=== PATIENT | female | born 1965 | race Two or more races ===

== ENCOUNTER 2016-12-14 08:48 | Day surgery (SDC) | payer OTHER ==
[2016-12-14] VITALS (9 sets, daily range): BP systolic 98–107; BP diastolic 59–85
[~2016-12-14] VITALS: Ht 160 cm; Wt 58.5 kg
[~2016-12-14 08:48] MED LIST: LR 1000ml 1,000 ML IVLG SCH
[2016-12-14] MEDS ORDERED: KLONOPIN1 MG ORAL (09:12)
[2016-12-14] MEDS ORDERED: CYMBALTA60 MG ORAL (09:12)
[2016-12-14] MEDS ORDERED: Propofol 200mg/20ml IV ONE (10:00)
[2016-12-14] MEDS ORDERED: Lidocaine 1% MPF 10mg/ml 5ml ONE (10:00)
[2016-12-14] MEDS ORDERED: LR 1000ml ONE (10:00)
--- NOTE | 2016-12-14 10:09 | Short Stay Surgery H&P ---
History of Present Illness History of Present Illness Chief Complaint History of iron deficiency anemia R/O GI bleeding. HPI Apple Lovett is a 51 year old female who was admitted on for Iron deficiency to R/O GI bleeding site. Patient History Allergies: Coded Allergies: No Known Allergies (Unverified , 12/13/16) PAST MEDICAL HISTORY: Past Surgeries: Social History: Medication History Scheduled Clonazepam* (Klonopin*), 1 MG ORAL HS, (Reported) Duloxetine Hcl* (Cymbalta*), 60 MG ORAL DAILY, (Reported) Review of Systems Cardiovascular: Reports: no symptoms Respiratory: Reports: no symptoms Skeletal: Reports: no symptoms Gastrointestinal: Reports: no symptoms Genitourinary: Reports: no symptoms Neurologic: Reports: no symptoms Hematologic: Reports: anemia Physical Exam Vital Signs Last Vital Signs Date Time Temp Pulse Resp B/P (MAP) Pulse Ox O2 Delivery O2 Flow Rate FiO2 12/14/16 09:17 97.7 90 20 107/85 100 Room Air Labs Laboratory Tests Test 12/14/16 09:55 Human Chorionic Gonadotropin, Qual Pending Skin: normal HENT: normal Heart: normal Lungs: normal Abdomen: normal Extremities: normal Genitourinary: normal Plan Plan of Care Upper and lower GI endoscopies. Preop Interventions none. Summary of Findings See the reports. Final Diagnosis: Attestation Are the patient's medical conditions optimized for surgery? Attestation Response: yes ASHIA MCCOY Dec 14, 2016 10:09
--- NOTE | 2016-12-14 10:10 | Pre-Procedure Note/Attestation ---
Pre-Procedure Note/Attestation Complete Prior to Procedure Planned Procedure: left Procedure Narrative: The endoscopic examination of the upper and lower GI tract Indications for Procedure Pre-Operative Diagnosis: R/O Peptic ulcer/colitis/ AVM/ hemangioma/colitis etc. Attestation I attest that I discussed the nature of the procedure; its benefits; risks and complications; and alternatives (and the risks and benefits of such alternatives ), prior to the procedure, with the patient (or the patient's legal automotive leasing sales representative). I attest that, if there was a reasonable possibility of needing a blood transfusion, the patient (or the patient's legal automotive leasing sales representative) was given the [place] [facility] [employer] [facility] standardized written summary, pursuant to the Nick Flori Blood Safety Act ([place] Health and Safety Code # 1645, as amended). I attest that I re-evaluated the patient just prior to the surgery and that there has been no change in the patient's H&P, except as documented below: ASHIA MCCOY Dec 14, 2016 10:10
--- NOTE | 2016-12-14 10:47 | Endoscopy Procedure Note ---
Endoscopy Procedure Note Procedures Performed: EGD - Normal Upper GI endoscopy, biopsy obtained from antrum and body of the stomach, colonoscopy - Normal total colonoscopy with substandard prep. Terminal ileum could not be penetrated. No bleeding site/ pathology found. Specimen: yes Pt Tolerated Procedure Well: Yes Estimated Blood Loss: none Anesthesiologist: Dr. bhatti Anesthesia: moderate sedation Medication Given: see anesthesia record Implant(s) used?: No 50 yrs or older w/o bx or poly: Yes 10yrs. F/U not recommended: Yes 10 yrs. F/U needed: Yes Med reason:<3 yrs.: System Reason:<3 yrs.: Last colonoscopy >= to 3yrs: Yes ASHIA MCCOY Dec 14, 2016 10:47
--- NOTE | 2016-12-14 10:48 | Discharge Instructions ---
Discharge Instructions Discharge Instructions Follow up with: Seethe docotor in office after two weeks. For Congestive Heart Failure Reminder Report to your physician any weight gain of 5 pounds or more in one week. ASHIA MCCOY Dec 14, 2016 10:48
--- NOTE | 2016-12-14 10:50 | Anethesia Preoperative Eval ---
Anesthesia Pre-op PMH/ROS General Date of Evaluation: Dec 14, 2016 Time of Evaluation: 10:49 Anesthesiologist: davy ASA Score: ASA 2 Mallampati Score Class I : Soft palate, uvula, fauces, pillars visible Class II: Soft palate, uvula, fauces visible Class III: Soft palate, base of uvula visible Class IV: Only hard plate visible Mallampati Classification: Class II Surgeon: Carol Diagnosis: Anemia Surgical Procedure: EGD/Colonoscopy Anesthesia History: none Family History: no anesthesia problems Allergies: Coded Allergies: No Known Allergies (Unverified , 12/13/16) Medications: see eMAR Past Medical History Cardiovascular: Denies: HTN, CAD, MS, valve dz, arrhythmia, other Pulmonary: Denies: asthma, COPD, BASIA, other Gastrointestinal/Genitourinary: Reports: GERD Neurologic/Psychiatric: Denies: dementia, CVA, depression/anxiety, TIA, other Endocrine: Denies: DM, hypothyroidism, steroids, other HEENT: Denies: cataract (L), cataract (R), glaucoma, TUNICA-BILOXI (L), TUNICA-BILOXI (R), other Hematology/Immune: Reports: anemia PSxH Narrative: appendectomy Anesthesia Pre-op Phys. Exam Physician Exam Last Vital Signs Date Time Temp Pulse Resp B/P (MAP) Pulse Ox O2 Delivery O2 Flow Rate FiO2 12/14/16 09:17 97.7 90 20 107/85 100 Room Air Constitutional: NAD Neurologic: CN 2-12 intact Cardiovascular: RRR Respiratory: CTA Gastrointestinal: S/NT/ND Airway Exam Mallampati Score: Class II MO: full ROM: full Dentures: no upper, no lower Anesthesia Pre-op A/P Labs Chemistry Test 12/14/16 09:55 Human Chorionic Gonadotropin, Qual Negative Serum Test Test 12/14/16 09:55 Human Chorionic Gonadotropin, Qual Negative Studies Pre-op Studies: EKG - sr Risk Assessment & Plan Assessment: pt declined HCQ, explained pt regarding consequence. she accepts. Plan: mac Status Change Before Surgery: No Pre-Antibiotics Drug: none ANA LEE LITIGATION PARTNER Dec 14, 2016 10:50
--- NOTE | 2016-12-14 10:57 | Immediate Post-Op Evaluation ---
Immediate Post-Op Evalulation Immediate Post-Op Evalulation Procedure: EGD/Colonoscopy Date of Evaluation: Dec 14, 2016 Time of Evaluation: 10:56 IV Fluids: 500 Blood Pressure Systolic: 104 Blood Pressure Diastolic: 60 Pulse Rate: 100 Respiratory Rate: 14 O2 Sat by Pulse Oximetry: 100 Temperature (Fahrenheit): 98 Pain Score (1-10): 0 Nausea: No Vomiting: No Complications none Patient Status: awake, reacts, patent Hydration Status: adequate Drug: none ANA LEE CRNA Dec 14, 2016 10:57
--- NOTE | 2016-12-14 11:36 | 48 Hour Post Anesthesia Eval ---
Post Anesthesia Evaluation Procedure: EGD/Colonoscopy Date of Evaluation: Dec 14, 2016 Time of Evaluation: 11:35 Blood Pressure Systolic: 104 0: 64 Pulse Rate: 69 Respiratory Rate: 14 O2 Sat by Pulse Oximetry: 100 Airway: patent Nausea: No Vomiting: No Hydration Status: adequate Mental Status/LOC: patient returned to baseline Post-Anesthesia Complications: none Follow-up care needed: N/A ANA LEE CRNA Dec 14, 2016 11:36
--- NOTE | 2016-12-14 20:45 | Procedure Note ---
DATE OF PROCEDURE: 12/14/2016 REFERRING PHYSICIAN: Dr. Mckee. PROCEDURE: Total colonoscopy. PREOPERATIVE DIAGNOSIS: Iron-deficiency anemia, rule out gastrointestinal blood loss, colonic pathology? POSTOPERATIVE DIAGNOSIS: Completely normal total colonoscopy, terminal ileum could not be penetrated. MEDICATIONS USED: Per Missael, anesthesiologist. INSTRUMENT: GIF Olympus videocolonoscope. DESCRIPTION OF PROCEDURE: The patient after arriving in the endoscopy unit, was told about risks and benefits of the procedure, which she accepted and signed the informed consent. She was then put on the left lateral decubitus position. After adequate IV sedation, the scope was gently passed through the anal area and a retroflexion maneuver, which was applied in this area did not reveal any major pathology such as major hemorrhoid, tumor, polyps etc. There was no inflammatory process, colitis etc. At this point, the scope was passed through the rectosigmoid angle and gradually to redundant colon, reached to the splenic flexure, transverse colon, and finally hepatic flexure, and was guided into the right colon all the way to the base of the cecum. All these areas remained to be normal though there was evidence of substandard colonic preparation, but no gross pathology was found such as colitis, tumors, angiodysplasia or stricture etc. Upon reaching to the base of the cecum and visualizing the appendiceal opening, multiple attempt to enter the camera in was unsuccessful and as such, the scope within 8 minutes was gradually pulled out and re-evaluation of the colon did not reveal any other pathology. The patient tolerated the procedure well and left the endoscopy room in a good condition. Said Tea Barragan DR: TWIN JOB#: [id number] CC: Dr. Mckee
== END 2016-12-14 12:10 | disposition home or self-care (01) ==
LOC: GAS 08:48
DX: D50.9 Iron deficiency anemia, unspecified (principal); K21.9 Gastro-esophageal reflux disease without esophagitis; K29.50 Unspecified chronic gastritis without bleeding; B96.81 Helicobacter pylori [H. pylori] as the cause of diseases classified elsewhere
CPT/HCPCS: 36415; 43239; 45378; 82270; 84703; J2704; J7120; 94003; 94150